=== PATIENT | female | born 1980 | race Caucasian/White ===

== ENCOUNTER 2025-10-13 15:59 | Emergency (ER) | payer OTHER, SELFPAY ==
[2025-10-13 16:07] VITALS: BP 160/98; PULSE 78; RESP 18; TEMP 36.1; O2SAT 99; BMI 36.7
--- NOTE | 2025-10-13 16:33 | ED.GENADULT ---
HPI - General Adult General Chief complaint: Neck Injury/Pain Stated complaint: pain in neck and left arm Time Seen by Provider: 10/13/25 16:03 History of Present Illness HPI narrative: This 45-year-old female comes in because of some left-sided posterior neck pain that began and about 8 hours prior to arrival here. The pain then began to radiate down her left arm toward her elbow. She states that she did do some shoveling a few days ago but otherwise has not had any strenuous activity or injury event. She does report a heart history and states that she had a atypical symptoms about 5 years ago when that occurred. She does take metoprolol and does not take a baby aspirin daily. Since then she has good exercise tolerance but states that she does not exert herself very strenuously. When she was shoveling few days ago she did not have any symptoms. Today her pain is in the posterior and neck on the left side and radiating down her left arm. She does not report any chest pain. Related Data Previous Rx's ?Medication ?Instructions ?Recorded ketorolac 10 mg tablet 10 mg PO TID 5 days #15 tabs 10/13/25 Allergies Allergy/AdvReac Type Severity Reaction Status Date / Time No Known Drug Allergies Allergy Verified 10/13/25 16:04 Review of Systems Status of ROS: Reports: 10 or more systems reviewed and unremarkable except as noted in History and below Narrative: Constitutional: No fevers, no weight gain or loss. Eyes: No discharge. No vision changes. HENT: No congestion, no sore throat, no ear pain. Cardiovascular: No chest pain, no palpitations. Respiratory: No shortness of breath, no wheezes, no cough. Gastrointestinal: No abdominal pain, no vomiting, no diarrhea. Genitourinary: No dysuria, no hematuria. Musculoskeletal: Normal range of motion. Skin: No rashes, no pruritis. Neurological: No dizziness, weakness, sensory change, speech change. Endo/Heme/Allergies: No bruising or bleeding. No polydipsia. Pysch: no suicidality, no anxiety, no insomnia. All other systems reviewed and are negative. Exam Narrative: Exam Narrative: Constitutional: Well-developed, well-nourished, no acute distress. HEENT: Normocephalic, atraumatic. Neck: Decreased range of motion due to pain and stiffness. Heart: Regular. No murmurs. Normal rate. Intact distal pulses. Lungs: Clear to auscultation. No chest discomfort. No wheezes, rhonchi, or rales. Abdomen: Normal bowel sounds. Nontender. No rebound tenderness. Genitalia: Deferred. Back: No midline tenderness. Normal range of motion. Extremities: Normal range of motion. No injury. Skin: Intact. No rash. Warm. No erythema or pallor. Neurologic: No altered sensation. No weakness. Alert and oriented. I attempted a Spurling's test but the patient was not much able to tip her head back or turned to the left. This did not reproduce any pain down into her left arm but perhaps was not a very good test given her decreased range of motion. Psychiatric: No suicidality. No anxiety or depression. No insomnia. Nursing notes and vitals signs are reviewed. Const: Vital Signs, click to edit/add: Vital Signs - 24 hr 10/13/25 16:07 10/13/25 17:11 10/13/25 17:15 Temperature 96.9 F L Pulse Rate [Pulse Oximeter] 78 Respiratory Rate 18 22 14 Blood Pressure [Ri t Upper Arm] 160/98 H Pulse Oximetry 99 Oxygen Delivery Me thod Room Air Course Vital Signs Vital signs: Initial Vital Signs Temperature 96.9 F L 10/13/25 16:07 Temperature Source Temporal Artery Scan 10/13/25 16:07 Pulse Rate 78 10/13/25 16:07 Respiratory Rate 18 10/13/25 16:07 Blood Pressure 160/98 H 10/13/25 16:07 Blood Pressure Mean 118 H 10/13/25 16:07 Pulse Oximetry 99 10/13/25 16:07 Oxygen Delivery Method Room Air 10/13/25 16:07 Vital Signs Temperature 96.9 F L 10/13/25 16:07 Pulse Rate 78 10/13/25 16:07 Respiratory Rate 18 10/13/25 16:07 Blood Pressure 160/98 H 10/13/25 16:07 Pulse Oximetry 99 10/13/25 16:07 Oxygen Delivery Method Room Air 10/13/25 16:07 Temperature 96.9 F L 10/13/25 16:07 Pulse Rate 78 10/13/25 16:07 Respiratory Rate 14 10/13/25 17:15 Blood Pressure 160/98 H 10/13/25 16:07 Pulse Oximetry 99 10/13/25 16:07 Oxygen Delivery Method Room Air 10/13/25 16:07 Medical Decision Making MDM Narrative Medical decision making narrative: This patient comes in with left-sided posterior neck pain radiating down her left arm. She was concerned that this may be related to her heart however she does not have any other symptoms that would indicate so. She was shoveling a couple days ago and tolerated this exertion well but her current symptoms may be related to this. EKG shows normal sinus rhythm without any ST or T-wave abnormalities. Labs are also acquired and these returned with normal results. In particular her high sensitivity troponin returns undetected. It does seem that this is a musculoskeletal condition with some possible nerve impingement. I did prescribe Medrol Dosepak and Toradol. The patient has baclofen that she uses on occasion as needed. Lab Data Labs: Lab Results 10/13/25 Range/Units 16:55 WBC 4.78 (4.50-11.00) K/uL RBC 4.44 (4.00-5.20) m/uL Hgb 12.9 (12.0-16.0) gm/dL Hct 40.8 (33.0-51.0) % MCV 92 (80-100) fL MCH 29 (26-34) pg MCHC 32 (32-36) gm/dL RDW Coeff of Mariana 11.9 (11.5-15.5) % Plt Count 158 (140-440) K/uL Neut % (Auto) 60.7 (42.0-72.0) % Lymph % (Auto) 29.7 (20-44) % Donley % (Auto) 7.5 (0.0-11.0) % Eos % (Auto) 1.7 (0.0-7.0) % Baso % (Auto) 0.4 (0.0-3.0) % Neut # (Auto) 2.90 (1.7-7.0) K/uL Lymph # (Auto) 1.42 (0.90-2.90) K/uL Donley # (Auto) 0.40 (0.00-0.90) K/UL Eos # (Auto) 0.08 (0.00-0.50) K/uL Baso # (Auto) 0.02 (0.00-0.30) K/uL Abs Immat Gran (auto) 0.00 (0.00-0.30) K/uL Imm/Tot Granulo (auto) 0.0 % POC Troponin I High Sensi 2.9 (2.9-13.0) pg/mL ECG Data Attestation: I personally reviewed and interpreted this ECG as follows: Interpretation: Normal sinus rhythm. Rate is 77 beats per minute. There are no ST or T-wave abnormalities. Discharge Plan Discharge Clinical Impression: Strain of neck muscle Patient Disposition: Home, Self-Care Condition: Stable Additional Instructions: Take medications as prescribed. Increase activity as tolerated. Follow up with MD return if worsening. Prescriptions: New ketorolac 10 mg tablet 10 mg PO TID 5 Days Qty: 15 0RF Follow Up/Referrals: Rito Quiroz MD [Primary Care Provider, Family Practice] Stand Alone Forms: [employer] Info Instructions
[2025-10-13 17:03] LABS: Hematocrit* 40.8 % (33.0-51.0); Hemoglobin* 12.9 gm/dL (12.0-16.0); Immature Granulocytes Abs Auto 0.00 K/uL (0.00-0.30); Immature Granulocytes Pct Auto 0.0 %; Lymphocytes Absolute Auto 1.42 K/uL (0.90-2.90); Mean Corpuscular HGB Conc 32 gm/dL (32-36); Mean Corpuscular Hemoglobin 29 pg (26-34); Mean Corpuscular Volume 92 fL (80-100); RDW Coefficient of Variation % 11.9 % (11.5-15.5); Red Blood Count* 4.44 m/uL (4.00-5.20); White Blood Count* 4.78 K/uL (4.50-11.00)
[2025-10-13 17:11] VITALS: RESP 22
[2025-10-13 17:11] LABS: Slide Review Reflex No
[2025-10-13 17:15] VITALS: RESP 14
--- OUTSIDE RECORDS SUMMARY | 2025-10-13 17:20 | XMS_ITS | Clinical Summary ---
Author Organization [facility] Address [address] [place] [address] Care Team Providers Care Community Health Director Name Role Phone Kane Quiroz MD Primary Care Provider Allergies No known active allergies Medications ibuprofen (ADVIL; MOTRIN) 200 mg tablet Take 800 mg by mouth 2 times daily if needed. Active melatonin 2.5 mg chew Chew by mouth at bedtime if needed. 0 09/23/2021 Active zinc 50 mg tablet Take 1 Tablet (50 mg) by mouth once daily. 0 09/23/2021 Active cholecalciferol (Vitamin D) 1,000 unit tablet Take 1 Tablet (1,000 units) by mouth once daily. 0 09/23/2021 Active benzonatate (TESSALON) 200 mg capsuleIndicatio ns:Cough, unspecified type Take 1 Capsule (200 mg) by mouth 3 times daily if needed for Cough. 21 Capsule 09/09/2022 Active metoprolol tartrate (LOPRESSOR) 25 mg tabletIndication s:Spontaneous dissection of coronary artery Take 0.5 tablet (12.5 mg) by mouth in the AM and 0.5 tablet (12.5 mg) by mouth in the PM 135 Tablet 3 11/24/2022 Active baclofen (LIORESAL) 10 mg tabletIndication s:Muscle spasm Take 1 Tablet (10 mg) by mouth 4 times daily if needed (muscle spasm). 30 Tablet 4 11/24/2022 Active Active Problems Problem Noted Date Diagnosed Date NSTEMI (non-ST elevated myocardial infarction) 0 01/25/2019 Overview (01/25/2019): Secondary to SCAD of D1 Fibromuscular dysplasia 01/25/2019 Chest pain 01/23/2019 Obesity, unspecified 05/22/2007 Routine general medical exam ination at a health care facility 05/22/2007 Immunizations Immunization Administration Dates Next Due Influenza, IIV3 (Age >=3 years) 08/27/2013 Influenza, IIV4 08/21/2020, 7,10/05/2015,2013 Influenza, IIV4 (=>6mos) MDV 09/03/2019,07/31/20 18 Td, Preservative Free (age > = 7 Years) 08/14/2005 Tdap 07/30/2017 Family History Medical History Relation Name Comments Good Health Father Good Health Mother Relation Name Status Comments Father Alive Mother Alive Social History Tobacco Use Types Packs/Day Years Used Date Smoking Tobacco: Never Smokeless Tobacco: Never Tobacco Cessation:Counseling Given: Yes Alcohol Use Standard Drinks/Week Comments Yes 0 (1 standard drink = 0.6 oz pur e alcohol) occasional PHQ-2 Answer Date Recorded PHQ-2 TOTAL SCORE 0 12/01/2020 Social Connections Answer Date Recorded Frequency of Communication with Friends and Fami ly Not on file 11/12/2021 Financial Resource Strain Answer Date R ecorded Difficulty of Paying Living Expenses Not on file 11/12/2021 Difficulty of Paying Living Expenses Not on file 11/12/2021 Comments No Sex and Gender Information Value Date Recorded Sex Assigned at Not on file Legal Sex Female 5:23 AM JUNIOR PHP DEVELOPER Gender Identity Not on file Sexual Orientation Not on file 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[employer]) Not on file Not o n file Not on file Obstetrics History Para Term AB IAB SAB Ectopic Multiple Livin g Live Births 1 1 1 0 0 0 0 0 0 1 1 Date Outcome GA Total Labor Labor/2nd/3rd Weight Sex Type Anes PTL Izzy A1 A5 Name Clin Term Last Filed Vital Signs Vital Sign Reading Time Taken Comments Blood Pressure 123/88 11/24/2022 9:24 AM JUNIOR PHP DEVELOPER Pulse 66 11/24/2022 9:24 AM JUNIOR PHP DEVELOPER Temperature 36.3 C (97.3 F) 09/09/2022 9:29 AM CDT Respiratory Rate 16 09/09/2022 9:29 AM CDT Oxygen Saturation 99% 11/24/2022 9:24 AM JUNIOR PHP DEVELOPER Inhaled Oxygen Concentration - - Weight 99.3 kg (219 lb) 11/24/2022 9:24 AM JUNIOR PHP DEVELOPER Height 162.6 cm (5' 4) 11/24/2022 9:24 AM JUNIOR PHP DEVELOPER Body Mass Index 37.59 11/24/2022 9:24 AM JUNIOR PHP DEVELOPER Plan of Treatment Health Maintenance Due Date Last Done Comments HIV for age 15-65 1993 Hepatitis C screening for ag e 18-79 1996 Hepatitis B series for 19+ ( 1 of 3 - 19+ 3-dose series) 1997 Pneumococcal series for age 6-49 (1 of 2 - PCV) 1997 Pap test for age 21-65 06/15/2011 8, 05/22/2007, 08/14/2005, Additional history exists Depression screening for age 12+ 12/01/2021 12/01/2020, 06/16/2019, 03/04/2019, Additional history exists Colonoscopy through age 75 2023 Mammogram for age 45-75 2023 01/31/2022, 01/26 BMI (ht and wt on same day) for age 18+ 11/24/2023 11/24/2022, 09/23/2021, 08/25/2021, Additional history exists COVID-19 vaccine series (2024- season) 2025 10/08/2022, 10/03/2021, 02/09/2021, Additional history exists Influenza Vaccine (#1) 2025 , 09/03/2019, 07/31/2018, Additional history exists Tetanus booster 07/30/2027 07/30/2017, 08/14/2005 Lipids for age 45-75 11/24/2027 11/24/2022, 01/25/20 19 RSV vaccine for adults or (1 - 1-dose 75+ series) 2053 Procedures Procedure Name Priority Date/Time Associated Diagnosis Comments LC LIPID PANEL AND CHOL/HDL RATIO Today 11/24/2022 10:28 AM JUNIOR PHP DEVELOPER NSTEMI (non-ST elevated myocardial infarction) (HC) XR MAMMO ROGERS UNI ADDL VIEWS RIGHT LESLY 01/31/2022 10:07 AM CDT 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[employer] THIN PREP PAP SCREEN IMAGED Routine 06/15/2008 10:11 AM CDT Routine General Medical Examination at a Health Care Facility from Last 3 Months or Most Recently Relevant to Health Maintenance Results * (ABNORMAL) LC LIPID PANEL AND CHOL/HDL RATIO (11/24/2022 10:28 AM [facility]) Pathologist [facility] Cholesterol, Total 201(H) 100 - 199 mg/dL 11/28/2022 1:07 AM [facility] Triglycerides 128 0 - 149 mg/dL 11/28/2022 1:07 AM [facility] HDL Cholesterol 64 >39 mg/dL 1:07 AM [facility] VLDL Cholesterol Earl 22 5 - 40 mg/dL 11/28/2022 1:07 AM [facility] LDL Chol Calc (NIH) 115(H) 0 - 99 mg/dL 11/28/2022 1:07 AM [facility] T. Chol/HDL Ratio 3.1 0.0 - 4.4 ratio 11/28/2022 1:07 AM [facility] Comment: T. Chol/HDL Ratio Men Women 1/2 Avg.Risk 3.4 3.3 Avg.Risk 5.0 4.4 2X Avg.Risk 9.6 7.1 3X Avg.Risk 23.4 11.0 Blood BLOOD SPECIMEN / Unknown Butterfly / Unknown 11/24/2022 10:28 AM JUNIOR PHP DEVELOPER 11/24/2022 10:28 AM [facility] - 11/28/2022 1:07 AM JUNIOR PHP DEVELOPER Performed at: 01 - [facility] [employer] [address] [address], [place], [place] [id number] Concrete Form Setter And Finisher: Samuel Coffman MD, Phone: [phone] Katey Keating MD SEND OUTS Final Res ult [facility] [place] [address], [place] * XR MAMMO ROGERS UNI ADDL VIEWS RIGHT (01/31/2022 10:07 AM CDT) Anatomical Region Laterality Modality BREASTS, Breast Right Mammograph y, Other 01/31/2022 11:5 5 AM CDT Impressions 02/01/2022 7:06 AM CDT 1. No evidence of malignancy. 2. Slight asymmetry noted on the previous study presumably due to normal glandular tissue. 3. Recommend annual screening mammography. BI-RADS Category 2: Benign Dictated by: Seth Jefferson MD @01/31/2022 11:55:59 AM / CRL:[email or web address] PATIENTS: You will also receive a letter with your examination results in an easy to read format. If you have questions about your results, please contact your referring provider. Narrative 02/01/2022 7:06 AM CDT For Patients: As a result of the Cures Act, medical imaging exams and procedure reports are released immediately into your electronic medical record. You may view this report before your referring provider. If you have questions, please contact your health care provider. ADDITIONAL VIEWS RIGHT DIGITAL MAMMOGRAM USING TOMOSYNTHESIS, 01/31/2022 RIGHT BREAST ULTRASOUND, 01/31/2022 INDICATION: Evaluate RIGHT breast asymmetry noted on the screening mammogram of 01/26/2022. TECHNIQUE: Diagnostic RIGHT mammogram with tomosynthesis and RIGHT breast ultrasound. FINDINGS: There are areas of scattered fibroglandular density in the RIGHT breast. Spot compression CC, spot compression MLO and 90 degree lateral view of the RIGHT breast demonstrate relative spreading of the glandular tissue. A targeted ultrasound of the RIGHT breast was normal. No cyst or solid mass was identified. Kane Quiroz MD MAMMO Final R esult * SALES REPRESENTATIVE [employer] THIN PREP PAP SCREEN IMAGED (06/15/2008 10:11 AM CDT) CYTOLOGY CYTOPATHOLOGY REPORT [facility] Status: Final Report [id number] CLINICAL INFORMATION LMP : 05/19/08 Previous Pap Date : 05/22/07 Previous PAP Dx : Negative for intraepithelial lesion or malignancy. Previous [place]/bx date : None Previous Colposcopy/Bx: None Hormone Usage : None Menstrual Status : Regular Periods Appearance of Cervix : Not given [place]/Bx done today : No HPV Request : Reflex HPV test if PAP Dx ASCUS SPECIMEN SOURCE : Cervical/vaginal ThinPrep Vial, screening SPECIMEN ADEQUACY : Satisfactory for evaluation Endocervical component present. INTERPRETATION/RES ULT: Negative for intraepithelial lesion or malignancy. Cytology 1st Screener : had Signed by: had This specimen was screened by the FDA approved ThinPrep Imaging System and manually reviewed. NOTE: The Pap test is a screening technique, not a diagnostic procedure. It is used primarily to screen for squamous cancers and precursor lesions. Published studies have shown that it is subject to both false negative and false positive results. The pap test should not be used as the sole means to diagnose or exclude pre-malignant and malignant lesions. COLLECTED: 06/15/08 ACCESSIONED: 06/15/08 SIGNED: 06/26/08 [facility] Cervical (Cervical) 06/15/2008 10:11 AM CDT 06/15/2008 10:09 AM CDT Barbara Bonds MD PATHOLOGY/CYTOLOGY Final Res ult [facility] INTERNAL ZIP [address] [address] from Last 3 Months or Most Recently Relevant to Health Maintenance Insurance MEDICA CHOICE Advance Directives * Full Code (Latest Code Status on File) Date Activated Date Inactivated Comments 01/23/2019 8:04 PM 01/27/2019 2:54 PM Care Teams Community Health Director Relationship Specialty Start Date End Date Kane Quiroz MD [address] [place] [id number] PCP - General Family Practice 08/27/13
--- OUTSIDE RECORDS SUMMARY | 2025-10-13 17:20 | XMS_ITS | Clinical Summary ---
Author Organization [facility] Address [address] [place] [address] Care Team Providers Care Endoscopy Technician Name Role Phone Kane Quiroz MD Primary Care Provider [phone] Source Comments You are receiving this document as you are listed as the primary care provider,follow-up provider, or the patient has been referred to you for consultation.This is in compliance with the Medicare and[facility] Incentive Program,which states Providers who transition their patient to another setting of careor provider of care or refers their patient to another provider of care shouldprovide summary care record for each transition of care or referral. [facility] Allergies No known active allergies Medications Baclofen (LIORESAL IT) Take 10 mg by mouth as needed. Active metoprolol tartrate (LOPRESSOR) 25 MG tablet Take 0.5 Tablets (12.5 mg) by mouth two times a day. 90 Tablet 3 06/06/2024 Active baclofen (LIORESAL) 10 MG tablet Take 1 Tablet (10 mg) by mouth three times a day as needed. 90 Tablet 3 06/06/2024 Active Social History Tobacco Use Types Packs/Day Years Used Date Smoking Tobacco: Never Smokeless Tobacco: Never Tobacco Cessation:Counseling Given: Not Answered Alcohol Use Standard Drinks/Week Comments Yes 0 (1 standard drink = 0.6 oz pur e alcohol) Comments Unknown Sex and Gender Information Value Date Recorded Sex Assigned at Not on file Legal Sex Female 12:02 PM CDT Gender Identity Not on file Sexual Orientation Not on file Plan of Treatment Health Maintenance Due Date Last Done Comments Cervical Cancer Screening Due 1978 Colon Cancer Screening Plan Due 1978 Hep C Screening (Preventive Services) 1978 Mammogram 1978 HIV Screening (Preventive Services) 1994 Adult Preventive Visit 1996 HepB Vaccine (1) 1997 COVID-19 Vaccine (5 - 2024- season) 2025 10/08/2022, 10/03/2021, 02/09/2021, Additional history exists Influenza Vaccine (#1) 2025 3, 10/08/2022, 08/21/2020, Additional history exists DTaP/Tdap/Td Vaccine (2 - Tdap) 07/30/2027 07/30/2017, 08/14/2005 Zoster/Shingles Vaccine (1 of 2) 2028 Cholesterol 06/05/2029 06/05/2024 HepA Vaccine Aged Out No longer eligi ble based on patient's age to complete this topic Hib Vaccine Aged Out No longer eligi ble based on patient's age to complete this topic IPV (Polio) Vaccine Aged Out No longe r eligible based on patient's age to complete this topic MCV4 Vaccine Aged Out No longer eligi ble based on patient's age to complete this topic Meningococcal B Vaccine Aged Out No l onger eligible based on patient's age to complete this topic Pneumococcal Vaccine Aged Out No long er eligible based on patient's age to complete this topic Procedures Procedure Name Priority Date/Time Associated Diagnosis Comments LIPID PANEL & DIRECT LDL (IF NEEDED) Routine 06/05/2024 10:29 AM CDT Encounter to establish care from Last 3 Months or Most Recently Relevant to Health Maintenance Results * (ABNORMAL) Lipid Panel and Direct LDL(If Needed) (06/05/2024 10:29 AM CDT) [facility] Signature Cholesterol 194 0 - 199 mg/dL 06/05/2024 4:44 PM CDT [facility] Triglyceride 197(H) <=149 mg/dL 06/05/2024 4:44 PM T [facility] HDL Cholesterol 52 >=40 mg/dL 4:44 PM T [facility] LDL, Calculated 103 <130 mg/dL 4:44 PM CDT [facility] Non HDL Chol, Calculated 142 <=159 mg/dL 06/05/2024 4:44 PM CDT [facility] Cholesterol/HDL Ratio 3.7 <=5.0 06/05/2024 4:44 PM CDT [facility] Hours Fasting 15.0 8 - 12 Hours 06/05/2024 4:44 PM T [facility] Blood Venipuncture / Unknown 06/05/2024 10:29 AM CDT 06/05/2024 10:36 AM CDT us Katey Keating MD LAB_1 Final Result [facility] [address] [place] [address], [facility] from Last 3 Months or Most Recently Relevant to Health Maintenance Insurance MEDICA CHOICE Care Teams Endoscopy Technician Relationship Specialty Start Date End Date Kane Quiroz MD [address] [place] [address] [place], [place] [id number] PCP - General Family Practice 06/05/24
== END 2025-10-13 17:44 | disposition home or self-care (01) ==
PROVIDERS: Emergency Provider Emergency Medicine Emergency Medical Services; PCP Family Medicine
DX: S16.1XXA Strain of muscle, fascia and tendon at neck level, initial encounter (principal); Y93.H1 Activity, digging, shoveling and raking
CPT/HCPCS: 36415; 84484; 85025; 93005; 94761; 99284